=== PATIENT | male | born 1990 | race Caucasian/White ===

== ENCOUNTER 2017-01-22 15:24 | Emergency (ER) | payer OTHER | END 2017-01-22 16:35 | disposition home or self-care (01) | LOC: ER1 15:24 | DX: J02.9 Acute pharyngitis, unspecified (principal); F17.210 Nicotine dependence, cigarettes, uncomplicated | CPT/HCPCS: 99282 ==

== ENCOUNTER 2017-07-12 19:13 | Emergency (ER) | payer OTHER | END 2017-07-12 19:42 | disposition left against medical advice (07) | LOC: ER1 19:13 | DX: Z53.21 Procedure and treatment not carried out due to patient leaving prior to being seen by health care provider (principal) ==